=== PATIENT | male | born 1990 ===

== ENCOUNTER 2017-05-14 11:27 | Emergency (ER) | payer OTHER ==
[2017-05-14 11:42] VITALS: BP 162/81
[2017-05-14] MEDS ORDERED: Ibuprofen TAB* 600 MG PO ONE (12:10)
--- NOTE | 2017-05-14 13:06 | RAD ---
INDICATION: Painful swollen LEFT wrist and dorsum of hand. Question fracture or foreign body. COMPARISON: No relevant prior exams available on the [facility] PACS for comparison. TECHNIQUE: AP, lateral, and oblique views LEFT hand. AP, lateral, and oblique views LEFT wrist. REPORT: Soft tissue swelling about the distal forearm, wrist, and hand noted without focality. No conspicuous foreign body evident. Negative for fracture or malalignment at the wrist or hand. Preserved joint spaces without significant arthropathic change. IMPRESSION: Soft tissue swelling without additional radiographic abnormality of the wrist or hand.
--- NOTE | 2017-05-14 13:06 | RAD ---
INDICATION: Painful swollen LEFT wrist and dorsum of hand. Question fracture or foreign body. COMPARISON: No relevant prior exams available on the [facility] PACS for comparison. TECHNIQUE: AP, lateral, and oblique views LEFT hand. AP, lateral, and oblique views LEFT wrist. REPORT: Soft tissue swelling about the distal forearm, wrist, and hand noted without focality. No conspicuous foreign body evident. Negative for fracture or malalignment at the wrist or hand. Preserved joint spaces without significant arthropathic change. IMPRESSION: Soft tissue swelling without additional radiographic abnormality of the wrist or hand.
--- NOTE | 2017-05-14 13:35 | UC ---
Hanane Armstrong Rebecca, scribed for Deion Forde MD on 05/14/17 at 1202 . Upper Extremity HPI - HPI Summary HPI Summary: Pt is a 26 y/o M who presents to [facility] c/o L hand pain, erythema and swelling. Pt reports waking up yesterday with sudden onset pain and swelling. Pain is in the L hand with occasional radiation up the LUE. Pain is currently severe, ranked 8/10. Took Ibuprofen at 0400 this morning. Sx aggravated by certain movements, alleviated by nothing. Notes intermittent numbness in the L hand. Denies fever, chills. No recent falls or injuries. No known tick bites. Dominant right hand. No PMHx or FHx RA or gout. - History of Current Complaint Chief Complaint: UCUpperExtremity Stated Complaint: WRIST INJURY Time Seen by Provider: 05/14/17 11:53 Hx Obtained From: Patient Onset/Duration: Sudden Onset, Lasting Days - Started yesterday morning, Still Present Severity Currently: Severe Pain Intensity: 8 Pain Scale Used: 0-10 Numeric Location Of Pain: Is Discrete @ - L hand, Radiates To - Occasionally up the LUE Aggravating Factor(s): Movement Alleviating Factor(s): Nothing Associated Signs And Symptoms: Positive: Swelling, Redness, Numbness/Tingling - Intermittent Related History: Dominant Hand Right - Allergies/Home Medications Allergies/Adverse Reactions: Allergies Allergy/AdvReac Type Severity Reaction Status Date / Time Chlorine Allergy Rash Verified 05/14/17 11:42 PMH/Surg Hx/FS Hx/Imm Hx - Additional Past Medical History Additional PMH: No PMHx gout or RA. PMHx chronic lumbar back pain. - Surgical History Surgical History: None - Family History Known Family History: Positive: Hypertension, Diabetes, Other - No FHx gout, RA - Social History Alcohol Use: Occasionally Substance Use Type: None Smoking Status (MU): Light Every Day Tobacco Smoker Type: Cigarettes Amount Used/How Often: 2-3 cigs per day Have You Smoked in the Last Year: Yes Review of Systems Constitutional: Negative Skin: Negative Eyes: Negative ENT: Negative Respiratory: Negative Cardiovascular: Negative Gastrointestinal: Negative Genitourinary: Negative Motor: Negative Neurovascular: Negative Musculoskeletal: Other: - L hand pain, erythema and swelling Neurological: Numbness - Intermittent L hand numbness Psychological: Negative All Other Systems Reviewed And Are Negative: Yes Physical Exam Triage Information Reviewed: Yes Vital Signs: Initial Vital Signs Temp 98.8 F 05/14/17 11:37 Pulse 80 05/14/17 11:37 Resp 18 05/14/17 11:37 BP 162/81 05/14/17 11:37 Pulse Ox 100 05/14/17 11:37 Vital Signs Reviewed: Yes - Additional Comments The patient is well-nourished in no acute distress and in no acute pain. The skin is warm and dry. HEENT: The head is normocephalic and atraumatic. The pupils are equal and reactive. The conjunctivae are clear and without drainage. Nares are patent and without drainage. Mouth reveals moist mucous membranes and the throat is without erythema and exudate. The external ears are intact. The ear canals are patent and without drainage. The tympanic membranes are intact. Respiratory: Chest is non-tender. Lungs are clear to auscultation and breath sounds are symmetrical and equal. Cardiovascular: Hear is regular rate and rhythm. There is no murmur or rub auscultated. There is no peripheral edema and pulses are symmetrical and equal. Musculoskeletal: There is no back pain noted. There is good capillary refill. No axillary or epitrochlear adenopathy. Area of marked erythema on the dorsum of the hand and wrist that is 4 cm by 5 cm with no fluctuance. No lymphangitis. Increased pain with ROM. Not ecchymotic. Pain is generalized, not localized. Veins are not streaked. Neurological: Patient is alert and oriented to person, place and time. The patient has symmetrical motor strength in all four extremities. Psychiatric: The patient has an appropriate affect and does not exhibit any anxiety or depression. Diagnostics - Radiology L wrist XR Xray Interpretation: No Acute Changes - Soft tissue swelling without additional radiographic abnormality of the wrist or hand. Radiology Interpretation Completed By: Radiologist L Hand XR Xray Interpretation: No Acute Changes - Soft tissue swelling without additional radiographic abnormality of the wrist or hand. Radiology Interpretation Completed By: Radiologist Upper Extremity Course/Dx - Course Course Of Treatment: Pt is a 26 y/o M who presents to [facility] c/o L hand pain, erythema and swelling since waking up yesterday morning. Pain is in the L hand with occasional radiation up the LUE. Pain is currently severe, ranked 8/10. Took Ibuprofen at 0400 this morning. Sx aggravated by certain movements. Notes intermittent numbness in the L hand. Denies fever, chills. No recent falls or injuries. No known tick bites. Dominant right hand. No PMHx or FHx RA or gout. DDx of cellulitis v. arthritis. In the [facility] course, he was administered Motrin. Preliminary read of wrist and hand XR reveal no acute fracture. Radiologist interpretations of L hand and wrist XR reveal no acute findings. He will be D/C to home with Dx of L wrist pain and cellulitis and arthritis and Rx for naproxen and Keflex. He understands and agrees. Patient medications reviewed this visit. Elevated BP noted and advised to f/u with [facility] phsyician referral. - Differential Dx/Diagnosis Differential Diagnosis/HQI/PQRI: Arthritis, Contusion, Fracture (Closed), Other - Cellulitis, gout, tenosynovitis Provider Diagnoses: Left wrist pain. Cellulitis. Arthritis. Discharge - Discharge Plan Condition: Stable Disposition: HOME Prescriptions: Cephalexin CAP* [Keflex CAP*] 500 mg PO QID #28 cap Naproxen [Naprosyn 500 mg] 500 mg PO BID PRN #20 tab PRN Reason: Pain Patient Education Materials: Cellulitis (ED), Arthritis (ED) Forms: *Work Release Referrals: [facility] [place] PHYSICIAN REFERRAL [Outside] The documentation as recorded by the Hanane aguilar Rebecca accurately reflects the service I personally performed and the decisions made by me, Deion Forde MD.
[2017-05-14 14:18] LABS: Hematocrit 45 % (42-52); Mean Corpuscular HGB Conc 33 g/dl (31-36); Mean Corpuscular Hemoglobin 30 pg (27-31); Mean Corpuscular Volume 90 fL (80-94); Mean Platelet Volume 8 um3 (7.4-10.4); Red Blood Count 5.05 10^6/ul (4.0-5.4); Red Cell Distribution Width 13 % (10.5-15); White Blood Count 10.7 10^3/ul (3.5-10.8)
[2017-05-14 14:28] LABS: Albumin 4.3 g/dL (3.2-5.2); BUN/Creatinine Ratio 21.3 (8-20); C Reactive Protein 15.9 mg/L (< 5.00); Calcium 9.3 mg/dL (8.6-10.3); EGFR African American 123.8 (>60); EGFR Non-African American 96.3 (>60); Globulin 2.7 g/dL (2-4); Total Bilirubin 0.7 mg/dL (0.2-1.0); Uric Acid 6.3 mg/dL (4.4-7.6)
[2017-05-14 15:01] LABS: Erythrocyte Sed Rate 10 mm/Hr (0-14)
--- NOTE | 2017-05-16 19:15 | UC ---
Progress - Progress Note Progress Note: CALL PATIENT NEGATIVE LYME, F/U PCP IF WORSE.
== END 2017-05-14 13:12 | disposition home or self-care (01) ==
LOC: UCEAST 11:27
DX: M19.032 Primary osteoarthritis, left wrist (principal); L03.114 Cellulitis of left upper limb; R03.0 Elevated blood-pressure reading, without diagnosis of hypertension; Z72.0 Tobacco use
CPT/HCPCS: 36415; 80053; 84550; 85025; 85652; 86140; 86618; 99213; A9270-GY; G0463